=== PATIENT | female | born 1980 | race Caucasian/White ===

== ENCOUNTER 2022-01-23 15:53 | Inpatient (IN) | payer OTHER ==
[~2022-01-23] VITALS: Ht 157.5 cm; Wt 82.7 kg
[2022-01-23] MEDS ORDERED: SODIUM CHLORIDE 0.9% 1,000 ML IV ONE ×2 (16:30→18:45)
[2022-01-23 16:46] LABS: BASOPHILS % (AUTO) 0.4 % (0.0-2.0); EOSINOPHILS % (AUTO) 0.5 % (1.0-6.0); HEMATOCRIT 41.8 % (36-46); HEMOGLOBIN 14.1 g/dL (12.0-16.0); LYMPHOCYTES # (AUTO) 0.9 K/uL (1.0-4.8); LYMPHOCYTES % (AUTO) 11.5 % (22.0-44.0); MEAN CORPUSCULAR HGB CONC 33.7 G/dL (31.0-37.0); MEAN CORPUSCULAR VOLUME 83 fL (80-100); MONOCYTES # (AUTO) 0.3 K/uL (0.1-1.0); MONOCYTES % (AUTO) 3.5 % (2.0-9.0); NEUTROPHILS # (AUTO) 6.5 K/uL (1.8-7.7); NEUTROPHILS % (AUTO) 84.1 % (40.0-70.0); PLATELET COUNT (AUTO) 266 K/uL (150-450); RED BLOOD CELL COUNT(AUTO) 5.03 MIL/uL (4.00-5.20); RED CELL DISTRIBUTION WIDTH 13.1 % (11.5-14.5)
[2022-01-23 16:53] LABS: COVID AG,FIA SOURCE NASOPHARYNGEAL
[2022-01-23 17:44] LABS: ALANINE AMINOTRANSFERASE 19 U/L (12-78); ALBUMIN 3.7 g/dL (3.4-5.0); ALKALINE PHOSPHATASE 75 U/L (46-116); ASPARTATE AMINOTRANSFERASE 22 U/L (15-37); BILIRUBIN,TOTAL 0.5 mg/dL (0.1-1.0); CALCIUM, TOTAL 8.4 mg/dL (8.8-10.5); CARBON DIOXIDE 21 mmol/L (22-29); CREATININE 0.63 mg/dL (0.60-1.30); GLOMERULAR FILTR. RATE CALC > 60 mL/min (>60); GLUCOSE,RANDOM 119 mg/dL (70-110); TOTAL PROTEIN, SERUM 7.6 g/dL (6.4-8.2); UREA NITROGEN, BLOOD 15 mg/dL (7-18)
[2022-01-23] MEDS ORDERED: MAGNESIUM HYDROXIDE SUSPENSION 30 ML UDCUP PO PRN (18:45)
[2022-01-23] MEDS: LORazepam 2 MG/ML VIAL IVP PRN (18:49)
[2022-01-23 19:02] LABS: AMPHET/METH SCREEN,URINE NEGATIVE (NEGATIVE); BARBITURATE SCREEN, URINE NEGATIVE (NEGATIVE); BENZODIAZEPINES SCREEN,URINE NEGATIVE (NEGATIVE); CANNABINOID SCREEN,URINE NEGATIVE (NEGATIVE); COCAINE SCREEN,URINE NEGATIVE (NEGATIVE); METHADONE SCREEN, URINE NEGATIVE (NEGATIVE); OPIATE SCREEN,URINE NEGATIVE (NEGATIVE)
[2022-01-23 19:06] LABS: PHENCYCLIDINE SCREEN,URINE NEGATIVE (NEGATIVE)
[2022-01-23 19:27] LABS: ANION GAP 13 mmol/L (8-16); CHLORIDE 104 mmol/L (98-107); SODIUM SERUM 138 mmol/L (136-145)
[2022-01-23 19:29] LABS: POTASSIUM 2.9 mmol/L (3.5-5.1)
[2022-01-23] MEDS ORDERED: POTASSIUM CHLORIDE 20 MEQ ER TABLET PO ONE (19:30)
[2022-01-23 20:49] VITALS: BP 133/97
[2022-01-23] MEDS ORDERED: POTASSIUM CHLORIDE 20 MEQ ER TABLET PO PRN (21:15)
[2022-01-23] MEDS ORDERED: POTASSIUM CHL 10 MEQ/WATER 50 ML IV PRN (21:15)
[2022-01-23] MEDS: ONDANSETRON HCL 4 MG/2 ML VIAL IVP PRN (22:22)
[2022-01-23 23:33] VITALS: BP 135/72
[2022-01-24] MEDS: ACETAMINOPHEN 325 MG TABLET PO PRN ×2 (04:21→21:08)
[2022-01-24] MEDS: LORazepam 2 MG/ML VIAL IVP PRN ×3 (04:30→22:39)
[2022-01-24 05:09] VITALS: BP 98/50
[2022-01-24] MEDS: ONDANSETRON HCL 4 MG/2 ML VIAL IVP PRN ×3 (06:02→21:08)
[2022-01-24 06:12] VITALS: BP 114/64
[2022-01-24] MEDS: FAMOTIDINE 20 MG TABLET PO SCH (08:15)
[2022-01-24 08:24] VITALS: BP 108/67
[2022-01-24 12:03] VITALS: BP 116/76
[2022-01-24 16:16] VITALS: BP 105/65
[2022-01-24 19:55] VITALS: BP 112/76
[2022-01-25] MEDS: IBUPROFEN 400 MG TABLET PO PRN ×4 (00:29→23:34)
[2022-01-25 05:05] VITALS: BP 102/66
[2022-01-25] MEDS: ONDANSETRON HCL 4 MG/2 ML VIAL IVP PRN ×3 (06:03→22:17)
[2022-01-25 08:52] VITALS: BP 126/68
[2022-01-25] MEDS: FAMOTIDINE 20 MG TABLET PO SCH (09:45)
[2022-01-25] MEDS: LORazepam 2 MG/ML VIAL IVP PRN ×3 (10:38→23:34)
[2022-01-25] MEDS: ACETAMINOPHEN 325 MG TABLET PO PRN (15:09)
[2022-01-25 15:15] VITALS: BP 123/77
[2022-01-25 20:36] VITALS: BP 128/81
[2022-01-26] MEDS: ACETAMINOPHEN 325 MG TABLET PO PRN ×3 (03:11→19:00)
[2022-01-26 05:09] VITALS: BP 136/89
[2022-01-26 07:41] VITALS: BP 132/79
[2022-01-26] MEDS: ONDANSETRON HCL 4 MG/2 ML VIAL IVP PRN ×2 (08:23→15:30)
[2022-01-26] MEDS: IBUPROFEN 400 MG TABLET PO PRN ×2 (08:23→15:31)
[2022-01-26] MEDS: FAMOTIDINE 20 MG TABLET PO SCH (08:23)
[2022-01-26] MEDS: LORazepam 2 MG/ML VIAL IVP PRN (08:24)
[2022-01-26] MEDS ORDERED: LOPERAMIDE HCL 2 MG CAPSULE PO ONE (15:45)
[2022-01-26 16:10] VITALS: BP 138/106
[2022-01-26 19:37] VITALS: BP 142/95
[2022-01-26 20:41] VITALS: BP 123/69
[2022-01-27] MEDS: ACETAMINOPHEN 325 MG TABLET PO PRN ×2 (00:08→08:35)
[2022-01-27] MEDS: ZOLPIDEM TARTRATE 5 MG TABLET PO PRN ×2 (00:08→22:18)
[2022-01-27 05:30] VITALS: BP 132/91
[2022-01-27] MEDS: ONDANSETRON HCL 4 MG/2 ML VIAL IVP PRN ×3 (05:49→15:50)
[2022-01-27 08:16] VITALS: BP 134/97
[2022-01-27] MEDS: FAMOTIDINE 20 MG TABLET PO SCH (08:35)
[2022-01-27] MEDS: IBUPROFEN 400 MG TABLET PO PRN ×3 (08:40→22:19)
[2022-01-27] MEDS: LOPERAMIDE HCL 2 MG CAPSULE PO PRN (09:20)
[2022-01-27 10:16] VITALS: BP 125/80
[2022-01-27 10:50] LABS: BASOPHILS % (AUTO) 0.8 % (0.0-2.0); EOSINOPHILS % (AUTO) 2.2 % (1.0-6.0); HEMATOCRIT 40.8 % (36-46); HEMOGLOBIN 13.8 g/dL (12.0-16.0); LYMPHOCYTES # (AUTO) 2.5 K/uL (1.0-4.8); LYMPHOCYTES % (AUTO) 36.7 % (22.0-44.0); MEAN CORPUSCULAR HEMOGLOBIN 27.8 pg (26.0-34.0); MEAN CORPUSCULAR HGB CONC 33.8 G/dL (31.0-37.0); MEAN CORPUSCULAR VOLUME 82 fL (80-100); MONOCYTES # (AUTO) 0.4 K/uL (0.1-1.0); MONOCYTES % (AUTO) 6.6 % (2.0-9.0); NEUTROPHILS # (AUTO) 3.7 K/uL (1.8-7.7); NEUTROPHILS % (AUTO) 53.7 % (40.0-70.0); PLATELET COUNT (AUTO) 282 K/uL (150-450); RED BLOOD CELL COUNT(AUTO) 4.97 MIL/uL (4.00-5.20); RED CELL DISTRIBUTION WIDTH 13.3 % (11.5-14.5)
[2022-01-27 10:53] LABS: ANION GAP 12 mmol/L (8-16); CALCIUM, TOTAL 8.5 mg/dL (8.8-10.5); CARBON DIOXIDE 24 mmol/L (22-29); CHLORIDE 105 mmol/L (98-107); CREATININE 0.76 mg/dL (0.60-1.30); GLOMERULAR FILTR. RATE CALC > 60 mL/min (>60); GLUCOSE,RANDOM 90 mg/dL (70-110); POTASSIUM 3.6 mmol/L (3.5-5.1); SODIUM SERUM 141 mmol/L (136-145); UREA NITROGEN, BLOOD 12 mg/dL (7-18)
[2022-01-27 10:58] LABS: ALANINE AMINOTRANSFERASE 16 U/L (12-78); ALBUMIN 3.5 g/dL (3.4-5.0); ALKALINE PHOSPHATASE 71 U/L (46-116); ASPARTATE AMINOTRANSFERASE 13 U/L (15-37); BILIRUBIN,TOTAL 0.4 mg/dL (0.1-1.0)
[2022-01-27 15:58] VITALS: BP 136/88
[2022-01-27 19:55] VITALS: BP 140/72
[2022-01-28] MEDS: ONDANSETRON HCL 4 MG/2 ML VIAL IVP PRN ×2 (01:21→10:00)
[2022-01-28 05:05] VITALS: BP 136/88
[2022-01-28 08:00] VITALS: BP 141/90
[2022-01-28] MEDS: FAMOTIDINE 20 MG TABLET PO SCH (08:32)
[2022-01-28] MEDS: IBUPROFEN 400 MG TABLET PO PRN (08:34)
[2022-01-28] MEDS: LOPERAMIDE HCL 2 MG CAPSULE PO PRN (08:41)
== END 2022-01-28 11:53 | DRG 897 ==
LOC: EMS 15:53 → 6S 18:43
PROVIDERS: ADMIT Internal Medicine; ATTEND Internal Medicine
DX: F11.13 Opioid abuse with withdrawal (principal); E66.9 Obesity, unspecified; F15.13 Other stimulant abuse with withdrawal; Z20.822 Contact with and (suspected) exposure to COVID-19; Z68.33 Body mass index [BMI] 33.0-33.9, adult
CPT/HCPCS: 51701; 80053; 84132; 84484; 84703; 85025; 93005; 99285; J2060; J2405; J3480; J7030